=== PATIENT | male | born 1960 | race Caucasian/White ===

== ENCOUNTER 2017-06-17 17:59 | Emergency (ER) | payer MEDICARE ==
[~2017-06-17] VITALS: Wt 108.9 kg
[~2017-06-17 17:59] MED LIST: ALLERGY MEDICAT25 MG PO; ASPIRIN81 M1 PO; DOXYCYCLINE HY100 M5 PO; GABAPENTIN600 MG PO; GLIPIZIDE10 M1 PO; LANTUS100 U/ML SC; LIPITOR10 MG PO; LISINOPRIL5 MG PO; LOPID600 MG PO; MEDROL DOSEPAK4 MG PO; METFORMIN500 MG PO; PERCOCET 325 MG1 TA2 PO; PROTONIX TR40 M1 PO; TRAD5TAB1 PO; ZOFRAN8 M1 PO
== END 2017-06-17 18:43 | disposition home or self-care (01) ==
LOC: ED 17:59
DX: S05.02XA Injury of conjunctiva and corneal abrasion without foreign body, left eye, initial encounter (principal); Z79.899 Other long term (current) drug therapy; Z79.82 Long term (current) use of aspirin; Z88.3 Allergy status to other anti-infective agents; X58.XXXA Exposure to other specified factors, initial encounter; Y93.89 Activity, other specified; Y92.89 Other specified places as the place of occurrence of the external cause; Y99.9 Unspecified external cause status

== ENCOUNTER → 2019-11-30 | Outpatient (CLI) | payer MEDICARE ==
[~2019-11-30] MED LIST changes: +TRESIBA FL100 UNIT/1 SQ; +VITAMIN D32000 UNI1 PO; +ZITHROMAX500 MG PO
== END | disposition home or self-care (01) ==
LOC: RAD 16:52
DX: R05 Cough (principal)

== ENCOUNTER 2019-12-04 19:18 | Inpatient (IN) | payer MEDICARE ==
[~2019-12-04] VITALS: Ht 185.4 cm; Wt 110.8 kg
[~2019-12-04 19:18] MED LIST changes: -TRESIBA FL100 UNIT/1 SQ; -VITAMIN D32000 UNI1 PO; -ZITHROMAX500 MG PO
[2019-12-04 19:35] VITALS: BP 150/71
[2019-12-04 20:40] LABS: BASO % 0.3 % (0.0-1.0); EOS # 0.1 10*3/uL (0.0-0.4); EOS % 0.9 % (1.0-4.0); HEMATOCRIT 39.2 % (42.0-52.0); HEMOGLOBIN 12.9 g/dl (14.0-18.0); LYMPH # 2.9 10*3/uL (1.3-4.4); MEAN CELL VOLUME 86.7 fl (80.0-94.0); MEAN CORPUSCULAR HGB 28.5 pg (27.0-31.0); MEAN CORPUSCULAR HGB CONC 32.9 g/dl (33.0-37.0); MEAN PLATELET VOLUME 9.2 fl (9.6-12.3); MONO % 9.4 % (3.0-9.0); NEUT # 6.7 10*3/uL (2.3-7.9); NEUT % 62.1 % (47.0-73.0); PLATELET COUNT AUTOMATED 270 10*3/uL (130-400); RED BLOOD COUNT 4.52 10*6/uL (4.50-5.90); RED CELL DISTRI WIDTH 13.8 % (0-14.5); WHITE BLOOD COUNT 10.8 10*3/uL (4.8-10.8)
[2019-12-04 20:58] LABS: ALBUMIN 3.4 gm/dl (3.1-4.5); ALKALINE PHOSPHATASE 89 U/L (45-117); BUN 18 mg/dl (7-24); CHLORIDE 103 mmol/L (98-107); CREATININE 1.14 mg/dL (0.70-1.30); SGOT/AST 13 IU/L (3-35); SGPT/ALT 20 U/L (12-78); SODIUM 135 mmol/L (136-145); TOTAL PROTEIN 7.6 gm/dL (6.4-8.2); TROPONIN I < 0.015 ng/ml (<0.045)
[2019-12-04 22:30] VITALS: BP 132/70
[2019-12-04 23:06] VITALS: BP 116/71
--- NOTE | 2019-12-04 23:06 | NUR ---
A 59, admitted to , under the services of GEORGE Hollins DO with a diagnosis of COPD EXACERBATION. CELLULITIS RIGHT FOOT. Chief complaint is FEVER. Patient arrived via bed from ER. Initial assessment completed. Vital signs taken and recorded. GEORGE HOLLINS DO notified of admission to the unit. Orders received. See assessment for past medical history, medications and allergies. Patient and/or family oriented to unit. [address] visitation policy reviewed. Clothing/patient valuable form completed. NO WOUNDS ON ADMISSION. RIGHT FOOT RED AND WARM TO TOUCH. NO OPEN AREAS TO FOOT. PT REFUSING FLU VACCINATION. STATES IT "MAKES HIM SICK". LALITA RODRIGEZ
[2019-12-04 23:13] VITALS: BP 116/71
[2019-12-04] MEDS ORDERED: TRESIBA FL100 UNIT/1 SQ (23:57)
[2019-12-05] VITALS: BP 116/71
--- NOTE | 2019-12-05 | NUR ---
PICTURES AND MEASUREMENTS TAKEN OF RIGHT FOOT/ANKLE CELLULITIS.
--- NOTE | 2019-12-05 00:11 | NUR ---
DR CADENA NOTIFIED OF UPDATED MED REC.
--- NOTE | 2019-12-05 06:03 | NUR ---
QUINN DAVIS [id number] Please refer to the physician's history and physical for past medical history, comorbid conditions, and allergies. Diagnosis: COPD EXACERBATION CELLULITIS OF RIGHT FOOT Mike Score: 22,LOW OR NO RISK WOUND DESCRIPTIONS: Wound Number: 1 Right foot and ankle erythema measures 12.0cm x 23.0cm x <0.1cm. Area is warm to touch. Edema noted to area. Patient states that it is only painful when walking. Patient states he had surgery with Dr. Gant podiatrkeila out of [place] for nerve problems in 2012 to both feet. Surface the patient is resting on: [employer] SKIN PREVENTION RECOMMENDATION: 1. Pressure redistribution support surface as appropriate 2. Elevate heels 3. Remove boots/TEDS every shift and reapply 4. Head of bed 30 degrees as tolerated 5. Assess nutrition and hydration 6. Manage moisture 7. Avoid the use of containment devices while in bed 8. Use absorptive products on surfaces limit layers of linens on bed 9. Turn and reposition every 1-2 hours in bed and every 1 hour in chair as tolerated 10. Weight shifts every 15 minutes while up in chair 11. Offloading with pillows or device to keep heels elevated off bed 12. Monitor skin at least every shift 13. Inspect under medical devices twice a day
[2019-12-05 06:04] LABS: BASO % 0.5 % (0.0-1.0); EOS # 0.1 10*3/uL (0.0-0.4); EOS % 1.3 % (1.0-4.0); HEMATOCRIT 37.1 % (42.0-52.0); HEMOGLOBIN 12.2 g/dl (14.0-18.0); LYMPH # 2.2 10*3/uL (1.3-4.4); LYMPH % 25.8 % (27.0-41.0); MEAN CELL VOLUME 86.3 fl (80.0-94.0); MEAN CORPUSCULAR HGB 28.4 pg (27.0-31.0); MEAN CORPUSCULAR HGB CONC 32.9 g/dl (33.0-37.0); MEAN PLATELET VOLUME 9.3 fl (9.6-12.3); MONO % 11.2 % (3.0-9.0); NEUT # 5.2 10*3/uL (2.3-7.9); PLATELET COUNT AUTOMATED 250 10*3/uL (130-400); RED CELL DISTRI WIDTH 13.8 % (0-14.5); WHITE BLOOD COUNT 8.5 10*3/uL (4.8-10.8)
[2019-12-05 06:25] LABS: CHLORIDE 104 mmol/L (98-107); POTASSIUM 3.8 mmol/L (3.5-5.1); SODIUM 136 mmol/L (136-145)
[2019-12-05 06:41] LABS: BUN 15 mg/dl (7-24); CHOLESTEROL 109 mg/dL (<200); CREATININE 0.94 mg/dL (0.70-1.30); FREE T4 1.34 ng/dl (0.76-1.46); HDL CHOLESTEROL 37 mg/dl (40-60); LDL CHOLESTEROL 50 mg/dL (9-159); PHOSPHOROUS 3.1 mg/dL (2.5-4.9); TRIGLYCERIDES 112 mg/dl (<150); VLDL CHOLESTEROL 22 mg/dL (6-40)
[2019-12-05 07:48] LABS: VITAMIN D, 25-HYDROXY 17.8 ng/mL (30-100)
--- NOTE | 2019-12-05 09:00 | NUR ---
[employer] in to talk to patient. Patient states lives at home with . There are no steps in the home. Physician: rome he [facility]acy: [facility] Home health services: none Patient's level of ADLs: INDEPENDENT Patient has working utilities: all working none DME: none Follow-up physician's appointment after d/c: will be made by hospitalist nurse director upon discharge Does patient want to access PORTAL?: no Discharge plan discussed with patient, present, he states he lives at home with his , he is independent in adls and ambulation, he will return home when medically stable and denies any home needs. SHADY MANDEL
--- NOTE | 2019-12-05 10:31 | NUR ---
MESSAGE LEFT WITH DR. LINDQUIST'S ANSWERING SERVICE REGARDING CONSULT.
[2019-12-05 12:00] VITALS: BP 135/57
--- NOTE | 2019-12-05 12:05 | NUR ---
Nutritional Support Services Note: Pt is on an 1800 juana diet consuming 100% of meals. Wound is noted to right leg/ankle as cellulitis. Receives a high protein night snack daily. No other nutrition interventions needed at this time. Encourage follow up if needed. 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
[2019-12-05 16:00] VITALS: BP 116/55
[2019-12-05 20:00] VITALS: BP 118/65
[2019-12-06] VITALS: BP 120/73
[2019-12-06 06:55] LABS: BASO % 0.5 % (0.0-1.0); EOS # 0.1 10*3/uL (0.0-0.4); EOS % 1.1 % (1.0-4.0); HEMATOCRIT 38.2 % (42.0-52.0); HEMOGLOBIN 12.3 g/dl (14.0-18.0); LYMPH # 2.4 10*3/uL (1.3-4.4); LYMPH % 27.7 % (27.0-41.0); MEAN CELL VOLUME 88.2 fl (80.0-94.0); MEAN CORPUSCULAR HGB 28.4 pg (27.0-31.0); MEAN CORPUSCULAR HGB CONC 32.2 g/dl (33.0-37.0); MEAN PLATELET VOLUME 9.5 fl (9.6-12.3); MONO % 10.9 % (3.0-9.0); NEUT # 5.2 10*3/uL (2.3-7.9); NEUT % 59.5 % (47.0-73.0); PLATELET COUNT AUTOMATED 270 10*3/uL (130-400); RED BLOOD COUNT 4.33 10*6/uL (4.50-5.90); RED CELL DISTRI WIDTH 13.8 % (0-14.5); WHITE BLOOD COUNT 8.7 10*3/uL (4.8-10.8)
[2019-12-06 07:18] LABS: BUN 13 mg/dl (7-24); CHLORIDE 104 mmol/L (98-107); CREATININE 0.99 mg/dL (0.70-1.30); SODIUM 138 mmol/L (136-145)
[2019-12-06 08:00] VITALS: BP 104/69
--- NOTE | 2019-12-06 11:09 | NUR ---
SITTING IN BED. DENIES ANY COMPLAINTS. PULSE OX 96% ON ROOM AIR. LUNGS CLEAR BILATERALLY. RIGHT FOOT RED/WARM TO TOUCH.
[2019-12-06 12:00] VITALS: BP 127/68
--- NOTE | 2019-12-06 13:16 | NUR ---
case management visits with patient, he will return home when medically stable and denies any home needs, case management will follow
[2019-12-06 16:00] VITALS: BP 110/60
[2019-12-06 20:00] VITALS: BP 107/62
[2019-12-07] VITALS: BP 111/60
--- NOTE | 2019-12-07 03:17 | NUR ---
24 HR chart check completed.
[2019-12-07 07:03] LABS: BASO % 0.5 % (0.0-1.0); EOS # 0.1 10*3/uL (0.0-0.4); EOS % 1.8 % (1.0-4.0); HEMATOCRIT 39.6 % (42.0-52.0); HEMOGLOBIN 12.7 g/dl (14.0-18.0); LYMPH # 2.2 10*3/uL (1.3-4.4); MEAN CELL VOLUME 87.2 fl (80.0-94.0); MEAN CORPUSCULAR HGB CONC 32.1 g/dl (33.0-37.0); MEAN PLATELET VOLUME 9.2 fl (9.6-12.3); MONO # 0.7 10*3/uL (0.1-1.0); NEUT # 4.8 10*3/uL (2.3-7.9); NEUT % 60.4 % (47.0-73.0); PLATELET COUNT AUTOMATED 299 10*3/uL (130-400); RED BLOOD COUNT 4.54 10*6/uL (4.50-5.90); RED CELL DISTRI WIDTH 13.7 % (0-14.5); WHITE BLOOD COUNT 7.9 10*3/uL (4.8-10.8)
[2019-12-07 07:36] LABS: BUN 18 mg/dl (7-24); CHLORIDE 105 mmol/L (98-107); CREATININE 1.01 mg/dL (0.70-1.30); POTASSIUM 3.9 mmol/L (3.5-5.1); SODIUM 138 mmol/L (136-145)
[2019-12-07 08:00] VITALS: BP 115/60
--- NOTE | 2019-12-07 09:00 | NUR ---
case management visits with patient, he will return home when medically stable and denies any home needs,
[2019-12-07] MEDS ORDERED: VITAMIN D32000 UNI1 PO (11:06)
[2019-12-07] MEDS ORDERED: ZITHROMAX500 MG PO (11:07)
--- NOTE | 2019-12-07 12:35 | NUR ---
PATIENT DISCHARGED TO HOME. ALL PERSONAL BELONGINGS SENT WITH PATIENT. IV DISCONTINUED. DISCHARGE INSTRUCTIONS AND PRESCRIPTIONS GIVEN AND REVIEWED WITH PATIENT. PATIENT INSTRUCTED TO FOLLOW UP WITH MIKA CHÁVEZ AND .
== END 2019-12-07 12:35 | disposition home or self-care (01) | DRG 602 ==
LOC: ED 19:18 → EDHOLD 22:11 → 5E 22:11 → 4E 22:35 → 5E 12-05 18:52
PROVIDERS: Family Medicine; Internal Medicine; Physician Assistant; ADMIT Internal Medicine
DX: L03.115 Cellulitis of right lower limb (principal); J18.9 Pneumonia, unspecified organism; E87.1 Hypo-osmolality and hyponatremia; J44.1 Chronic obstructive pulmonary disease with (acute) exacerbation; J44.0 Chronic obstructive pulmonary disease with (acute) lower respiratory infection; D64.9 Anemia, unspecified; E11.65 Type 2 diabetes mellitus with hyperglycemia; I25.10 Atherosclerotic heart disease of native coronary artery without angina pectoris; E78.5 Hyperlipidemia, unspecified; G89.29 Other chronic pain; I10 Essential (primary) hypertension; K21.9 Gastro-esophageal reflux disease without esophagitis; E55.9 Vitamin D deficiency, unspecified; E11.610 Type 2 diabetes mellitus with diabetic neuropathic arthropathy; E11.42 Type 2 diabetes mellitus with diabetic polyneuropathy; Z79.4 Long term (current) use of insulin; Z88.1 Allergy status to other antibiotic agents; Z79.82 Long term (current) use of aspirin; Z79.899 Other long term (current) drug therapy; Z87.891 Personal history of nicotine dependence; Z80.52 Family history of malignant neoplasm of bladder

== ENCOUNTER → 2020-01-02 | Outpatient (CLI) | payer MEDICARE ==
[~2020-01-02] MED LIST changes: +TRESIBA FL100 UNIT/1 SQ; +VITAMIN D32000 UNI1 PO; +ZITHROMAX500 MG PO
== END | disposition home or self-care (01) ==
LOC: RAD 14:15
DX: J18.9 Pneumonia, unspecified organism (principal)

== ENCOUNTER 2020-01-22 23:18 | Emergency (ER) | payer MEDICARE ==
[~2020-01-22] VITALS: Ht 185.4 cm; Wt 110.2 kg
[2020-01-23 00:15] LABS: BASO % 0.3 % (0.0-1.0); EOS # 0.1 10*3/uL (0.0-0.4); EOS % 1.2 % (1.0-4.0); HEMATOCRIT 40.4 % (42.0-52.0); LYMPH # 2.3 10*3/uL (1.3-4.4); LYMPH % 21.8 % (27.0-41.0); MEAN CELL VOLUME 88.4 fl (80.0-94.0); MEAN CORPUSCULAR HGB 28.4 pg (27.0-31.0); MEAN CORPUSCULAR HGB CONC 32.2 g/dl (33.0-37.0); MEAN PLATELET VOLUME 9.4 fl (9.6-12.3); MONO % 9.2 % (3.0-9.0); NEUT % 67.2 % (47.0-73.0); PLATELET COUNT AUTOMATED 239 10*3/uL (130-400); RED BLOOD COUNT 4.57 10*6/uL (4.50-5.90); RED CELL DISTRI WIDTH 14.4 % (0-14.5); WHITE BLOOD COUNT 10.5 10*3/uL (4.8-10.8)
[2020-01-23 00:30] LABS: ALBUMIN 3.6 gm/dl (3.1-4.5); ALKALINE PHOSPHATASE 103 U/L (45-117); BUN 14 mg/dl (7-24); CHLORIDE 104 mmol/L (98-107); CREATININE 1.07 mg/dL (0.70-1.30); SGOT/AST 12 IU/L (3-35); SGPT/ALT 18 U/L (12-78); SODIUM 137 mmol/L (136-145); URIC ACID 6.3 mg/dL (3.5-7.2)
[2020-01-23] MEDS ORDERED: CLINDAMYCIN HC300 MG PO (03:20)
== END 2020-01-23 03:52 | disposition home or self-care (01) ==
LOC: ED 23:18
PROVIDERS: Emergency Medicine
DX: L03.115 Cellulitis of right lower limb (principal); E11.9 Type 2 diabetes mellitus without complications; I25.10 Atherosclerotic heart disease of native coronary artery without angina pectoris; E78.5 Hyperlipidemia, unspecified; I10 Essential (primary) hypertension; Z88.1 Allergy status to other antibiotic agents; Z79.899 Other long term (current) drug therapy; Z79.82 Long term (current) use of aspirin

== ENCOUNTER → 2023-04-01 | Outpatient (CLI) | payer OTHER, MEDICAID ==
[~2023-04-01] MED LIST changes: +CLINDAMYCIN HC300 MG PO
[2023-04-01 11:07] LABS: ALKALINE PHOSPHATASE 91 U/L (46-116); BUN 15 mg/dl (9-23); CHLORIDE 103 mmol/L (98-107); CHOLESTEROL 147 mg/dL (<200); LDL CHOLESTEROL 77 mg/dL (9-159); POTASSIUM 4.2 mmol/L (3.4-5.1); SGPT/ALT 12 U/L (10-49); TOTAL PROTEIN 7.3 gm/dL (6.0-8.0); TRIGLYCERIDES 163 mg/dl (<150)
== END | disposition home or self-care (01) ==
LOC: LAB 10:28
PROVIDERS: ATTEND Nurse Practitioner Family
DX: E11.40 Type 2 diabetes mellitus with diabetic neuropathy, unspecified (principal); I10 Essential (primary) hypertension; E78.5 Hyperlipidemia, unspecified

== ENCOUNTER → 2024-04-14 | Outpatient (CLI) | payer OTHER, MEDICAID ==
[~2024-04-14] MED LIST changes: +Technetium Tc 99M Medronate 1 KIT KIT IV SCH
[2024-04-14 10:26] LABS: BASO % 0.7 % (0.0-1.0); EOS # 0.1 10*3/uL (0.0-0.4); EOS % 2.3 % (1.0-4.0); HEMATOCRIT 43.4 % (42.0-52.0); LYMPH # 1.8 10*3/uL (1.3-4.4); LYMPH % 31.6 % (27.0-41.0); MEAN CELL VOLUME 90.8 fl (80.0-94.0); MEAN CORPUSCULAR HGB 29.5 pg (27.0-31.0); MEAN CORPUSCULAR HGB CONC 32.5 g/dl (33.0-37.0); MEAN PLATELET VOLUME 9.6 fl (9.6-12.3); MONO # 0.5 10*3/uL (0.1-1.0); MONO % 9.5 % (3.0-9.0); NEUT # 3.1 10*3/uL (2.3-7.9); NEUT % 55.5 % (47.0-73.0); PLATELET COUNT AUTOMATED 193 10*3/uL (130-400); RED BLOOD COUNT 4.78 10*6/uL (4.50-5.90); RED CELL DISTRI WIDTH 13.4 % (0-14.5); WHITE BLOOD COUNT 5.7 10*3/uL (4.8-10.8)
[2024-04-14 10:54] LABS: ALKALINE PHOSPHATASE 108 U/L (46-116); BUN 13 mg/dl (9-23); CHLORIDE 105 mmol/L (98-107); CHOLESTEROL 147 mg/dL (<200); LDL CHOLESTEROL 83 mg/dL (9-159); POTASSIUM 4.1 mmol/L (3.4-5.1); SGPT/ALT 8 U/L (5-49); TRIGLYCERIDES 125 mg/dl (<150)
== END | disposition home or self-care (01) ==
LOC: NM 09:13 → LAB 09:13 → NM 10:00
PROVIDERS: ATTEND Nurse Practitioner Family
DX: I10 Essential (primary) hypertension (principal); E78.5 Hyperlipidemia, unspecified

== ENCOUNTER 2025-04-03 17:50 | Emergency (ER) | payer OTHER, MEDICAID ==
[~2025-04-03] VITALS: Ht 185.4 cm; Wt 90.7 kg
[~2025-04-03 17:50] MED LIST changes: -Technetium Tc 99M Medronate 1 KIT KIT IV SCH
== END 2025-04-03 20:32 | disposition home or self-care (01) ==
LOC: ED 17:50
DX: S00.83XA Contusion of other part of head, initial encounter (principal); I10 Essential (primary) hypertension; E11.9 Type 2 diabetes mellitus without complications; Z79.82 Long term (current) use of aspirin; Z79.4 Long term (current) use of insulin; Z79.899 Other long term (current) drug therapy; Z88.1 Allergy status to other antibiotic agents; V29.39XA Other motorcycle (driver) (passenger) injured in unspecified nontraffic accident, initial encounter; Y93.89 Activity, other specified; Y92.488 Other paved roadways as the place of occurrence of the external cause; Y99.8 Other external cause status